=== PATIENT | female | born 1985 | race Asian ===

== ENCOUNTER 2017-02-22 16:20 | Emergency (ER) | payer MEDICAID ==
[~2017-02-22] VITALS: Ht 165.1 cm; Wt 88.4 kg
[~2017-02-22 16:20] MED LIST: IBUP-11 PO; ONDA4TAB7 PO; OXYC-302 PO; PROM25TA10; VALA500T4
[2017-02-22] MEDS ORDERED: SODIUM CHLORIDE FLUSH 10ML SYR IVF ONE (17:30)
[2017-02-22] MEDS ORDERED: SODIUM CHLORIDE 0.9% 1,000ML IVBOLUS ONE (17:30)
[2017-02-22 17:44] LABS: HEMATOCRIT 47.8 % (34.6-47.8); HEMOGLOBIN 16.3 g/dL (11.7-16.4); WHITE BLOOD COUNT 9.3 x10^3/uL (3.4-10)
[2017-02-22 17:58] LABS: BLOOD UREA NITROGEN 12 mg/dL (7-18)
[2017-02-22 18:03] LABS: ASPARTATE AMINO TRANSFERASE 18 U/L (15-37)
[2017-02-22] MEDS ORDERED: IBUPROFEN 200 MG TABLET ONE (18:23)
[2017-02-22] MEDS ORDERED: ONDANSETRON ODT 4 MG ONE (18:23)
[2017-02-22] MEDS ORDERED: ONDANSETRON ODT 4 MG PO ONE (18:30)
[2017-02-22] MEDS ORDERED: IBUPROFEN 200 MG TABLET PO ONE (18:30)
[2017-02-22 19:21] VITALS: BP 159/108
== END 2017-02-22 19:25 | disposition home or self-care (01) ==
LOC: ED 19:19
DX: N93.8 Other specified abnormal uterine and vaginal bleeding (principal); F17.200 Nicotine dependence, unspecified, uncomplicated
CPT/HCPCS: 36415; 80053; 81001; 84703; 85025; 93005; 99285; Q0162

== ENCOUNTER 2018-08-23 20:10 | Emergency (ER) | payer MEDICAID ==
[~2018-08-23] VITALS: Ht 165.1 cm; Wt 95.7 kg
--- NOTE | 2018-08-23 20:15 | NUR ---
Pt nilx1. Pt's in lobby stated "she went to snack bar i think."
--- NOTE | 2018-08-23 20:33 | NUR ---
States numbness in hands since june. C/o having a hard time walking recently. Pt amb w/ steady gait to triage PER TIRAGE NOTE PT UP STABLE CHANGING GOWN BUT STILL C/O UNSTABILITY PT IS IN IMAGING NOW
[2018-08-23 20:45] VITALS: BP 138/88
[2018-08-23] MEDS ORDERED: ALPR0.25 PO (20:47)
[2018-08-23] MEDS ORDERED: ALBU0.63 NEB (20:47)
--- NOTE | 2018-08-23 20:48 | NUR ---
LABS WERE DRAWN [place]
[2018-08-23 20:56] LABS: BASOPHILS # (AUTO) 0.03 x10^3/uL (0-0.1); BASOPHILS % (AUTO) 0 % (0-1); EOSINOPHILS % (AUTO) 0 % (1-7); LYMPHOCYTES # (AUTO) 2.17 x10^3/uL (1-3.4); LYMPHOCYTES % (AUTO) 20 % (22-44); MD NO; MEAN CORPUSCULAR HEMOGLOBIN 32.1 pg (27.0-34.8); MEAN CORPUSCULAR HGB CONC 34.3 g/dL (32.4-35.8); MEAN CORPUSCULAR VOLUME 93.4 fL (80-100); MEAN PLATELET VOLUME 8.2 fL (7.4-10.4); MONOCYTES # (AUTO) 0.32 x10^3/uL (0.2-0.8); MONOCYTES % (AUTO) 3 % (2-9); NEUTROPHILS # (AUTO) 8.17 x10^3/uL (1.8-6.8); NEUTROPHILS % (AUTO) 76 % (42-75); PLATELET COUNT 365 x10^3/uL (130-400); RED BLOOD COUNT 4.21 x10^6/uL (3.82-5.3); RED CELL DISTRIBUTION WIDTH 12.5 % (9.6-15.2)
[2018-08-23 21:04] LABS: ALANINE AMINOTRANSFERASE 38 U/L (12-78); ALBUMIN 3.4 g/dL (3.4-5.0); ANION GAP 6 mmol/L (5-15); CALCIUM 9.1 mg/dL (8.5-10.1); CHLORIDE 110 mmol/L (98-107)
[2018-08-23 21:09] LABS: ALKALINE PHOSPHATASE 86 U/L (45-117); BILIRUBIN,TOTAL 0.2 mg/dL (0.2-1.0); FREE T4 (FREE THYROXINE) 0.89 ng/dL (0.76-1.46); TOTAL PROTEIN 7.4 g/dL (6.4-8.2); TROPONIN I < 0.015 ng/mL (0.000-0.045)
--- NOTE | 2018-08-23 22:48 | NUR ---
Patient/Caregiver given discharge instructions and they have confirmed that they understand the instructions. Patient ambulatory with steady gait.
== END 2018-08-23 22:55 | disposition home or self-care (01) ==
LOC: ED 21:59
DX: R20.2 Paresthesia of skin (principal); I10 Essential (primary) hypertension; F17.200 Nicotine dependence, unspecified, uncomplicated
CPT/HCPCS: 36415; 71046; 80053; 83735; 84439; 84443; 84484; 84703; 85025; 93005; 99284